=== PATIENT | male | born 1955 | race African-American/Black ===

== ENCOUNTER 2020-11-14 13:56 | Emergency (ER) | payer OTHER, MEDICARE ==
--- NOTE | 2020-11-14 15:49 | EDM.PDOC ---
ED HPI GENERAL MEDICAL PROBLEM - General Chief Complaint: General Stated Complaint: ABDOMINAL PAIN BLOOD IN VOMIT Time Seen by Provider: 11/14/20 15:42 Source of Information: Reports: Patient History Limitations: Reports: No Limitations - History of Present Illness INITIAL COMMENTS - FREE TEXT/NARRATIVE: 65-year-old male of -[place] descent presents to the ED for evaluation of persistent and recurrent hemoptysis for the last 10 days. He quit smoking in 1989. No travel outside of the country and no history of tuberculosis. Denies any fever or chills. Bright red hemoptysis intermittently. No recent nosebleeds. Second problem is persistent left upper quadrant abdominal pain with bleeding per rectum almost with every bowel movement which is painless. Known to have hemorrhoids. History of diverticulitis. Appetite has been poor lately. Did have a peanut butter sandwich at lunch today. Denies fever or chills. Generalized weakness. Overall aware of atrophy of muscles left upper extremity with fasciculations of the biceps and pectoralis major muscle on the left side Onset: Unknown/Unsure (He believes he has been coughing up some bright red blood intermittently for 10 days.), Other (Persistent left upper quadrant abdominal pain appears to be chronic and he has blood with almost every bowel movement with weight wiping. Known to have hemorrhoids. Bowel movements are painless) Duration: Chronic Location: Reports: Abdomen (Left upper quadrant and epigastric pain), Other ( Recurrent bleeding per rectum almost with every bowel movement which is painless compatible with hemorrhoids.) Quality: Reports: Ache (Pain in his left upper abdomen is achy and pressure-like and usually is worse between midnight and 4 in the morning) Severity: Moderate Improves with: Reports: None Worsens with: Reports: None Context: Denies: Activity, Exercise, Lifting, Sick Contact, Trauma Associated Symptoms: Reports: Cough, cough w sputum (With hemoptysis intermittently the last 10 days), Loss of Appetite, Malaise, Weakness. 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: Other (see below) (Only medications prescribed to him through the [place] [facility] and he did not bring them with him.) Middle Abdomen Pain Score (Numeric/FACES): 5 - Related Data Allergies Allergy/AdvReac Type Severity Reaction Status Date / Time No Known Allergies Allergy Verified 11/14/20 16:14 Home Meds: Home Meds polyethylene glycoL 3350 [MiraLAX] 17 gm PO DAILY #1 canister 11/14/20 [Rx] Past Medical History HEENT History: Reports: Impaired Vision Cardiovascular History: Reports: High Cholesterol, Hypertension Gastrointestinal History: Reports: Hemorrhoids, Other (See Below) Other Gastrointestinal History: Diverticulitis at least one bout in the past. [place] [facility] [place]Metabolic History: Reports: Diabetes, Type II, Obesity/BMI 30+ Social & Family History - Tobacco Use Tobacco Use Status *Q: Never Tobacco User - Caffeine Use Caffeine Use: Reports: None - Recreational Drug Use Recreational Drug Use: No - Living Situation & Occupation Occupation: Unemployed ED ROS GENERAL - Review of Systems Review Of Systems: See Below Constitutional: Reports: Malaise, Fatigue, Decreased Appetite. Denies: Fever, Chills, Weight Loss HEENT: Reports: Glasses Respiratory: Reports: Shortness of Breath, Cough, Sputum (Rare sputum), Hemoptysis. Denies: Wheezing, Pleuritic Chest Pain, Other Cardiovascular: Reports: Blood Pressure Problem (He believes he is on medicine for blood pressure). Denies: Chest Pain, Claudication, Dyspnea on Exertion, Edema, Lightheadedness, Orthopnea, Palpitations Endocrine: Reports: Fatigue GI/Abdominal: Reports: Abdominal Pain (Persistent epigastric left upper quadrant abdominal pain almost every night between the hours of 12 and 4 AM.), Decreased Appetite, Hematochezia (He states he has blood with every bowel movement without pain. History of internal and external hemorrhoids but is usually on wiping.), Nausea (Intermittent nausea). Denies: Difficulty Swallowing, Melena, Vomiting : Reports: Frequency, Other (Nocturia x2.) Musculoskeletal: Reports: Neck Pain, Shoulder Pain, Back Pain, Joint Pain (Occasional pain knees and hips) Skin: Reports: No Symptoms Neurological: Reports: Weakness, Other (He appreciates fasciculations particularly in his upper extremities in the distribution of the biceps muscle and pectoralis muscles. He states his muscles are wasting away.). Denies: Confusion, Dizziness, Headache, Numbness, Syncope, Tingling Psychiatric: Reports: Depression Hematologic/Lymphatic: Reports: No Symptoms Immunologic: Reports: No Symptoms ED EXAM, GENERAL - Physical Exam Exam: See Below Exam Limited By: No Limitations General Appearance: Alert, WD/WN, No Apparent Distress, Other (Temperature is 36.6 degrees. Heart rate 79 sinus respiratory is 18 with O2 sats of 94% room air. BP 141/97) Eye Exam: Bilateral Eye: Normal Inspection (Mild blepharal pallor no scleral icterus), PERRL Throat/Mouth: Normal Inspection, Normal Lips, Normal Oropharynx. No: Normal Teeth Head: Atraumatic, Normocephalic Neck: Normal Inspection, Supple, Non-Tender, Full Range of Motion, Tender Lateral. No: Lymphadenopathy (L), Lymphadenopathy (R) Respiratory/Chest: No Respiratory Distress, No Accessory Muscle Use, Rales (Few rales both posterior lung keen.) Cardiovascular: Normal Peripheral Pulses, Regular Rate, Rhythm, No Edema, No Gallop, No Murmur, No Rub Peripheral Pulses: 2+: Carotid (L), Carotid (R), Posterior Tibial (L), Posterior Tibial (R), Dorsalis Pedis (L), Dorsalis Pedis (R) GI/Abdominal: Normal Bowel Sounds, Soft, No Organomegaly, No Mass, Pelvis Stable, Tender (In his left upper mid abdomen laterally). No: Guarding, Rigid ( considered to be mild no associated guarding), Rebound, Splenomegaly (Male) Exam: No Hernia Back Exam: Normal Inspection, Full Range of Motion. No: CVA Tenderness (L), CVA Tenderness (R) Extremities: Normal Inspection, Normal Range of Motion, Non-Tender, No Pedal Edema Neurological: Alert, Oriented, CN II-XII Intact, Normal Cognition Psychiatric: Normal Affect, Normal Mood Skin Exam: Warm, Dry, Intact, Normal Color, No Rash #1 Interpretation EKG Date: 11/14/20 Time: 16:10 Rhythm: NSR Rate (Beats/Min): 73 [place]: Normal P-Wave: Enlarged (Left atrial hypertrophy) QRS: Other (Nonspecific intraventricular conduction delay poor R wave progression with delayed transition) ST-T: Other (Nonspecific T wave flattening aVL) QT: Normal EKG Interpretation Comments: Abnormal ECG Course - Vital Signs Last Recorded V/S: Last Vital Signs Temp 36.6 C 11/14/20 14:28 Pulse 69 11/14/20 18:35 Resp 18 11/14/20 18:35 BP 128/95 H 11/14/20 18:35 Pulse Ox 94 L 11/14/20 18:35 - Orders/Labs/Meds Labs: Laboratory Tests 11/14/20 11/14/20 11/14/20 Range/Units 16:10 16:10 16:10 WBC 5.64 (4.23-9.07) K/mm3 RBC 5.44 (4.63-6.08) M/mm3 Hgb 16.0 (13.7-17.5) gm/dl Hct 48.7 (40.1-51.0) % MCV 89.5 (79.0-92.2) fl MCH 29.4 (25.7-32.2) pg MCHC 32.9 (32.2-35.5) g/dl RDW Std Deviation 44.8 H (35.1-43.9) fL Plt Count 245 (163-337) K/mm3 MPV 10.0 (9.4-12.3) fl Neut % (Auto) 55.2 (34.0-67.9) % Lymph % (Auto) 32.1 (21.8-53.1) % Parke % (Auto) 8.9 (5.3-12.2) % Eos % (Auto) 3.0 (0.8-7.0) Baso % (Auto) 0.4 (0.1-1.2) % Neut # (Auto) 3.12 (1.78-5.38) K/mm3 Lymph # (Auto) 1.81 (1.32-3.57) K/mm3 Parke # (Auto) 0.50 (0.30-0.82) K/mm3 Eos # (Auto) 0.17 (0.04-0.54) K/mm3 Baso # (Auto) 0.02 (0.01-0.08) K/mm3 ESR 3 (0-15) mm/hr PT (9.7-12.0) SECONDS INR APTT (21.7-31.4) SECONDS D-Dimer, Quantitative (0.19-0.50) mg/L Sodium 138 (136-145) mEq/L Potassium 4.1 (3.5-5.1) mEq/L Chloride 103 (98-107) mEq/L Carbon Dioxide 27 (21-32) mEq/L Anion Gap 12.1 (5-15) BUN 13 (7-18) mg/dL Creatinine 0.8 (0.7-1.3) mg/dL Est Cr Clr Drug Dosing 103.74 mL/min Estimated GFR (MDRD) > 60 (>60) mL/min BUN/Creatinine Ratio 16.3 (14-18) Glucose 133 H (70-99) mg/dL Calcium 9.2 (8.5-10.1) mg/dL Magnesium 2.0 (1.8-2.4) mg/dL Total Bilirubin 0.3 (0.2-1.0) mg/dL AST 16 (15-37) U/L ALT 22 (16-63) U/L Alkaline Phosphatase 83 (46-116) U/L Troponin I < 0.017 (0.00-0.056) ng/mL C-Reactive Protein <0.2 (<1.0) mg/dL NT-Pro-B Natriuret Pep (0-125) pg/mL Total Protein 7.3 (6.4-8.2) g/dl Albumin 3.7 (3.4-5.0) g/dl Globulin 3.6 gm/dL Albumin/Globulin Ratio 1.0 (1-2) Lipase 270 (73-393) U/L 11/14/20 11/14/20 Range/Units 16:10 16:10 WBC (4.23-9.07) K/mm3 RBC (4.63-6.08) M/mm3 Hgb (13.7-17.5) gm/dl Hct (40.1-51.0) % MCV (79.0-92.2) fl MCH (25.7-32.2) pg MCHC (32.2-35.5) g/dl RDW Std Deviation (35.1-43.9) fL Plt Count (163-337) K/mm3 MPV (9.4-12.3) fl Neut % (Auto) (34.0-67.9) % Lymph % (Auto) (21.8-53.1) % Parke % (Auto) (5.3-12.2) % Eos % (Auto) (0.8-7.0) Baso % (Auto) (0.1-1.2) % Neut # (Auto) (1.78-5.38) K/mm3 Lymph # (Auto) (1.32-3.57) K/mm3 Parke # (Auto) (0.30-0.82) K/mm3 Eos # (Auto) (0.04-0.54) K/mm3 Baso # (Auto) (0.01-0.08) K/mm3 ESR (0-15) mm/hr PT 9.9 (9.7-12.0) SECONDS INR < 0.93 APTT 24.1 (21.7-31.4) SECONDS D-Dimer, Quantitative 0.34 (0.19-0.50) mg/L Sodium (136-145) mEq/L Potassium (3.5-5.1) mEq/L Chloride (98-107) mEq/L Carbon Dioxide (21-32) mEq/L Anion Gap (5-15) BUN (7-18) mg/dL Creatinine (0.7-1.3) mg/dL Est Cr Clr Drug Dosing mL/min Estimated GFR (MDRD) (>60) mL/min BUN/Creatinine Ratio (14-18) Glucose (70-99) mg/dL Calcium (8.5-10.1) mg/dL Magnesium (1.8-2.4) mg/dL Total Bilirubin (0.2-1.0) mg/dL AST (15-37) U/L ALT (16-63) U/L Alkaline Phosphatase (46-116) U/L Troponin I (0.00-0.056) ng/mL C-Reactive Protein (<1.0) mg/dL NT-Pro-B Natriuret Pep 7 (0-125) pg/mL Total Protein (6.4-8.2) g/dl Albumin (3.4-5.0) g/dl Globulin gm/dL Albumin/Globulin Ratio (1-2) Lipase (73-393) U/L Meds: Medications Discontinued Medications Generic Name Dose Route Start Last Admin Trade Name Freq PRN Reason Stop Dose Admin Dextrose/Sodium Chloride 1,000 mls @ 150 mls/hr 11/14/20 16:00 11/14/20 16:14 Dextrose 5%-Normal Saline IV 150 mls/hr ASDIRECTED CRISTIANO Administration Iopamidol 100 ml 11/14/20 17:28 11/14/20 17:30 Iopamidol 612 Mg/Ml 100 Ml Bottle IVPUSH 11/14/20 17:29 100 ml ONETIME ONE Administration Iopamidol 50 ml 11/14/20 17:28 11/14/20 17:30 Iopamidol 612 Mg/Ml 50 Ml Sdv IVPUSH 11/14/20 17:29 25 ml ONETIME ONE Administration Magnesium Citrate 210 ml 11/14/20 18:30 11/14/20 18:35 Magnesium Citrate Solution 296 Ml Bottle PO 11/14/20 18:31 210 ml ONETIME ONE Administration Sodium Chloride 10 ml 11/14/20 17:28 11/14/20 17:30 Sodium Chloride 0.9% 10 Ml Syringe FLUSH 11/14/20 17:29 10 ml ONETIME ONE Administration - Radiology Interpretation Free Text/Narrative:: 65-year-old male of -[place] descent presents to the ED for an evaluation of reported hemoptysis off and on for the last 10 days. This always occurs with acute coughing events. Brings up occasional white sputum. No fever chills or loss of weight reported. Patient was also complaining of persistent left upper quadrant and epigastric abdominal pain worse in the hours of midnight to 4 AM. Associated bleeding per rectum with almost every bowel movement which is painless. He has a history of diverticulitis on a couple of occasions. He admits that his appetite is declined recently. He quit smoking in 1989. Rarely drinks any alcohol. [facility] and did not bring any of them with him. He believes they are mostly for blood pressure control. He does take a stool softener daily to keep his stool soft to prevent aggravation of his hemorrhoids. On exam your nose and throat is normal. Appears to have a few crackles to both posterior lung bases. Benign abdominal examination although mild tenderness left upper mid abdomen with no guarding or rebound tenderness. Plan he will have CT chest with contrast as well as CT abdomen pelvis with contrast both intravenous and oral. This is providing his renal function returns normal. IV will be D5 normal saline at 150 mils per hour. He is in no pain or discomfort. - Re-Assessments/Exams Free Text/Narrative Re-Assessment/Exam: 11/14/20 17:23 White count is normal at 5.64 the auto differential shows 55% neutrophils. Hemoglobin is 16.0 with hematocrit of 48.7 suggesting mild hemoconcentration. Platelet count normal at 245,000. PT is 9.9 with a INR less than 0.93 PTT is 24.1. D-dimer is 0.34 normal. Sodium 138 with a potassium of 4.1. Chloride is 103 with a bicarb of 27. Anion gap is 12.1. BUN is 13 with a creatinine of 0.8 and a GFR greater than 60. Glucose is 133. Calcium is 9.2. Magnesium is 2.0. Liver function is normal troponin I is less than 0.017 C- reactive protein less than 0.2 BNP is 7 with a total protein of 7.3 and an albumin fraction of 3.7 serum lipase is also normal at 270 11/14/20 18:05 CT of the chest performed with contrast. Thoracic aorta shows no aneurysm. Mild atherosclerotic calcification is appreciated. Mediastinum and hilar regions show no adenopathy. No axillary adenopathy is seen. No pericardial thickening is seen no pericardial effusion is seen. Linear densities are noted on lung window settings within both posterior lung bases. Lungs are otherwise clear. No focal pulmonary nodules are appreciated. No pleural effusion or pneumothorax is seen. Bone window settings were reviewed which shows minimal degenerative change within the thoracic spine. No acute osseous finding is appreciated prior cervical spine surgery is partially visualized CT of the abdomen pelvis has been performed with intravenous and oral contrast. Small low-density areas are seen within the liver involving both right and left lobes. Largest finding measures 5 mm these are too small to measure accurately by Hounsfield unit measurements but statistically are most likely due to small cyst. Gallbladder contains no calcified gallstones spleen size is normal. Adrenal glands show no nodules. Kidneys show symmetric contrast enhancement. Small cyst is noted within the upper right kidney measuring 6 mm. Kidneys otherwise show no additional abnormality. Delayed images show contrast within the distal ureters and bladder. Thoracic aorta shows no aneurysm. No retroperitoneal is seen. Pancreas is within normal limits. No mesenteric abnormalities are seen slight increase stool is seen throughout the colon. Appendix is not definitively visualized. Mild diverticulosis is noted within portions of the descending and sigmoid colon without any inflammatory changes to indicate diverticulitis no pelvic masses or adenopathy is seen. Prostate gland is slightly enlarged bone window settings were reviewed which show severe disc space narrowing and vacuum phenomena particular at the L5-S1 level. Degenerative changes also noted within both hips worse on the right side. No acute osseous abnormalities otherwise appreciated. I have discussed the findings with the patient and he is reassured that he does not have any underlying cancers. His abdominal pain is most likely due to chronic constipation as he is a large portion of his transverse colon that is stool-filled and dips deep down into his pelvis on the left side and then comes back to the left splenic flexure. He will be taking magnesium citrate 7 ounces tonight in combination with the oral contrast he drank today or imaging of his abdomen to provide bowel cleanse. After this he is advised to take MiraLAX powder 17 g daily to prevent constipation from recurring. If his bleeding per rectum continues he is advised to follow-up with [place] [facility] and consider surgical management with banding of internal hemorrhoids. Advised if he still has any hemoptysis within the next 2 weeks he will require further follow-up with pulmonology consultation and bronchoscopy. He has asked that I send all his records to the [place] clinic which I we will do. Departure - Departure Time of Disposition: 18:31 Disposition: Home, Self-Care 01 Condition: Fair Clinical Impression: Constipation by delayed colonic transit, Hemoptysis, unspecified Abdominal pain Qualifiers: Abdominal location: left upper quadrant Qualified Code(s): R10.12 - Left upper quadrant pain Hemorrhoids Qualifiers: Hemorrhoid type: second degree Qualified Code(s): K64.1 - Second degree hemorrhoids - Discharge Information *PRESCRIPTION DRUG MONITORING PROGRAM REVIEWED*: Not Applicable *COPY OF PRESCRIPTION DRUG MONITORING REPORT IN PATIENT NATHALIE: Not Applicable Prescriptions: polyethylene glycoL 3350 [MiraLAX] 17 gm PO DAILY #1 canister Instructions: Abdominal Pain, Adult, [id number] Referrals: PCP,None [Primary Care Provider] - Forms: ED Department Discharge Additional Instructions: Evaluation in the emergency room today in regards to noted intermittent coughing that contains blood. Therefore a CT scan of your chest was completed which reveals no abnormalities within the lungs bronchial tubes heart or mediastinum that would be worrisome for cancer or any growth within the bronchial tubes at this time. You must have broken a blood vessel somewhere in the upper airway from coughing that is causing intermittent blood to show up in your sputum. If this does not go away completely within the next 2 weeks then follow-up with a specialist call the transcripter is required. They will look down the bronchial tubes with a scope to look at the inside of the bronchial tubes to make sure there is no abnormal growth that would cause bleeding. Second problem today was persistent left upper quadrant abdominal pain that often plagued you between the hours of midnight and 4:00 in the morning interfering with your ability to sleep. An x-ray of the abdomen shows a large amount of stool within the entire left hemiabdomen from constipation. CT scan of the abdomen was performed with oral and IV contrast and reveals no abnormalities other than multiple small cysts within your liver which is not an unusual finding. The stomach, spleen, kidneys, and adrenal glands all appear normal. Prostate gland is mildly enlarged. The bowel does contain an excess amount of stool particular throughout the transverse colon across her upper abdomen and left hemicolon. There are diverticuli pouches on the sigmoid and descending colon's but there is no signs of active diverticulitis which is an infection of these pouches. Therefore your bleeding per rectum is due to hemorrhoids as you appreciated for several years. We need to get your bowel working better and I would suggest taking 6 ounces of medium citrate or Citroma when you get home to make sure your bowels are cleansed tonight. Then you need to start MiraLAX powder 17 g or 1 scoop every single day to keep the bowels regular which should relieve your upper abdominal pain issues and also keep the stools regular and soft so as not to aggravate the hemorrhoids. If bleeding per rectum persists then follow-up with the surgeon is indicated to have the hemorrhoids banded to stop the rectal bleeding. Sepsis Event Note (ED) - Evaluation Sepsis Screening Result: No Definite Risk - Focused Exam Vital Signs: Vital Signs Temp Pulse Resp BP Pulse Ox 11/14/20 18:35 69 18 128/95 H 94 L 11/14/20 14:28 36.6 C 79 18 141/97 H 94 L
[2020-11-14] MEDS ORDERED: Dextrose 5%-0.9% NaCl 1,000 ML IV SCH (16:00)
[2020-11-14] MEDS ORDERED: Iopamidol 612 MG/ML 100 ML Bottle IVPUSH ONE (17:28)
[2020-11-14] MEDS ORDERED: Iopamidol 612 MG/ML 50 ML SDV IVPUSH ONE (17:28)
[2020-11-14] MEDS ORDERED: Sodium Chloride 0.9% 10 ML Syringe FLUSH ONE (17:28)
--- NOTE | 2020-11-14 18:00 | CT ---
CT chest Technique: Multiple axial sections through the chest were obtained. Intravenous contrast was utilized. Reconstructed coronal and sagittal images were obtained. Comparison: No prior chest CT or chest x-ray is available. Findings: Thoracic aorta shows no aneurysm. Mild atherosclerotic calcification is seen. Mediastinum and hilar regions show no adenopathy. No axillary adenopathy is seen. No pericardial thickening is seen. No pericardial effusion is seen. Linear densities are noted on lung window settings within both posterior lung bases. Lungs otherwise are clear. No focal pulmonary nodule is seen. No pleural effusions or pneumothorax is seen. Bone window settings were reviewed which shows minimal degenerative change within the thoracic spine. No acute osseous finding is appreciated. Prior cervical spine surgery is partially visualized. Impression: 1. Atelectasis posteriorly within both lung bases. 2. Other incidental findings. Nothing acute is seen. Diagnostic code #2 CT abdomen and pelvis Technique: Multiple axial sections were obtained from above the dome of the diaphragm inferiorly through the pubic symphysis. Intravenous and oral contrast were utilized. Delayed images were also obtained through the bladder. Reconstructed coronal and sagittal images were obtained. Comparison: No prior abdominal imaging is available. Findings: Small low density areas are seen within the liver involving both right and left lobes. Largest finding measures 5 mm. These are too small to measure accurately by Hounsfield unit measurements but, statistically, are most likely due to small cysts. Gallbladder contains no calcified gallstones. Spleen size is normal. Adrenal glands show no nodule. Kidneys show symmetric contrast enhancement. Small cyst is noted within the upper right kidney measuring 6 mm. Kidneys otherwise show no additional abnormality. Delayed images show contrast within the distal ureters and bladder. Thoracic aorta shows no aneurysm. No retroperitoneal adenopathy is seen. Pancreas is within normal limits. No mesenteric abnormalities are seen. Slight increased stool is seen throughout the colon. Appendix is not definitely visualized. Mild diverticulosis is noted within portions of the descending and sigmoid colon without inflammatory change of diverticulitis. No pelvic mass or adenopathy is seen. Prostate gland is slightly enlarged. Bone window settings were reviewed which show severe disc space narrowing and vacuum phenomena at L5-S1. Degenerative change is also noted within both hips, worse on the right side. No acute osseous abnormality is appreciated. Impression: 1. Numerous findings as noted above. 2. Increase stool within the colon. 3. Nothing acute is otherwise seen. Diagnostic code #2
[2020-11-14] MEDS ORDERED: Magnesium Citrate Solution 296 ML Bottle PO ONE (18:30)
== END 2020-11-14 18:55 | disposition home or self-care (01) ==
LOC: JD.ED 13:56
DX: K59.01 Slow transit constipation (principal); R04.2 Hemoptysis; K64.1 Second degree hemorrhoids; I10 Essential (primary) hypertension; E11.9 Type 2 diabetes mellitus without complications; E66.9 Obesity, unspecified; Z68.30 Body mass index [BMI] 30.0-30.9, adult
CPT/HCPCS: 36415; 71260; 74177; 80053; 83690; 83735; 83880; 84484; 85025; 85379; 85610; 85652; 85730; 86140; 93005; 99285; A9270; J7042; Q9967; 93010; 99284

== ENCOUNTER 2021-10-21 08:37 | Emergency (ER) | payer OTHER, MEDICARE ==
[2021-10-21] MEDS ORDERED: Nitroglycerin/D5W 25 MG/250 ML BOTTLE IV SCH (09:15)
[2021-10-21] MEDS ORDERED: Sodium Chloride 0.9% 1,000 ML IV SCH (09:15)
[2021-10-21] MEDS ORDERED: Metoclopramide 10 MG/2 ML SDV IVPUSH ONE (09:15)
[2021-10-21] MEDS ORDERED: HYDROmorphone 0.5 MG/0.5 ML Syringe IVPUSH ONE (09:16)
[2021-10-21] MEDS ORDERED: Aspirin 81 MG Tab.Chew PO ONE (09:16)
[2021-10-21] MEDS ORDERED: Furosemide 40 MG/4 ML VIAL IVPUSH ONE (09:33)
[2021-10-21 09:42] LABS: HEMOGLOBIN A1C 7.2 %
[2021-10-21 09:57] LABS: ESTIMATED GFR 103 mL/min (>60)
[2021-10-21] MEDS ORDERED: Succinylcholine 200 MG/10 ML MDV IV ONE (11:00)
[2021-10-21] MEDS ORDERED: Midazolam 1 MG/ML 5 ML SDV IVPUSH ONE ×3 (11:00→14:31)
[2021-10-21] MEDS ORDERED: propofoL 100 ML IV SCH (11:00)
[2021-10-21] MEDS ORDERED: Sodium Chloride 0.9% 500 ML IV ONE (11:03)
[2021-10-21] MEDS ORDERED: Norepinephrine 4 MG in Dextrose 5% in Water 246 ML IV SCH ×2 (11:15)
[2021-10-21] MEDS ORDERED: propofoL 100 ML ONE (11:28)
[2021-10-21] MEDS ORDERED: Midazolam 1 MG/ML 2 ML SDV IVPUSH ONE ×2 (11:57→14:31)
[2021-10-21] MEDS ORDERED: Dextrose 5%-Lactated Ringers 1,000 ML IV SCH (14:15)
[2021-10-21] MEDS ORDERED: Succinylcholine 200 MG/10 ML MDV IV STA (14:31)
== END 2021-10-21 16:33 ==
LOC: JD.ED 08:37
DX: J96.22 Acute and chronic respiratory failure with hypercapnia (principal); I10 Essential (primary) hypertension; E11.9 Type 2 diabetes mellitus without complications; E66.9 Obesity, unspecified; Z68.30 Body mass index [BMI] 30.0-30.9, adult; Z79.899 Other long term (current) drug therapy; Z20.822 Contact with and (suspected) exposure to COVID-19
CPT/HCPCS: 31500; 32551; 36415; 36600; 43752; 51702; 70450; 71045; 80053; 80306; 81001; 82009; 82553; 82803; 82947; 83036; 83605; 83880; 84484; 85025; 85379; 85610; 85730; 86140; 87635; 93005; 94660; 96365; 96366; 96368; 96375; 99285; A9270; J0330; J1170; J1940; J2250; J2704; J2765; J3490; J7030; J7060; J7121; 93010; U0002